=== PATIENT | female | born 1990 | race Two or more races ===

== ENCOUNTER 2016-09-13 10:45 | Emergency (ER) | payer OTHER ==
[~2016-09-13 10:45] MED LIST: ALBUTEROL 0.5ML INH; ALBUTEROL MININEB NEB; ALBUTEROL17 G1 IH; ALBUTEROL17 GM INH; AMOXICILLIN PO; AMOXICILLIN500 M1 PO; BCP; BENTYL20 MG PO; BIRTH CONTROL PILL; BIRTH CONTROL PILL PO; CLARITIN10 MG PO; DARVOCET-N 1001 TAB PO; FLEXERIL PO; FLEXERIL10 MG PO; IBUPROFEN PO; IBUPROFEN600 MG PO; INDOCIN SR75 MG PO; INDOMETHACIN; MOTRIN600 MG PO; NASACORT AQ16.5 GM; NO MEDICATIONS; ORUDIS75 M1 PO; PHENERGAN PO; PHENERGAN/CODEIN5 ML PO; PHENERGAN25 M1 PO; PREDNISONE PO; PRENATAL PO; PRENATAL1 TA1; PRENATAL1 TA1 PO; PROVENTIL INH0.5 ML HHN; QVAR7.3 G1 INH; QVAR7.3 GM INH; ROBITUSSIN A-C-S1 ML PO; ROBITUSSIN PO; SINGULAIR PO; SKELAXIN PO; VICODIN 5/1 TAB 5/50 PO; VICODIN 5/500 T1 TAB PO; VOLTAREN75 MG PO
== END 2016-09-13 10:50 | disposition home or self-care (01) ==
LOC: SED 10:45
DX: K08.89 Other specified disorders of teeth and supporting structures (principal); J45.909 Unspecified asthma, uncomplicated
CPT/HCPCS: 99282